=== PATIENT | female | born 1980 | race Caucasian/White ===

== ENCOUNTER 2016-03-31 22:59 | Emergency (ER) | payer SELFPAY ==
--- NOTE | 2016-03-31 23:46 | ERNOTE ---
Abdominal HPI - Narrative Date of Service: 03/31/16 - General Chief Complaint: Abdominal Pain Time Seen by Provider: 03/31/16 23:46 Source: patient, family Exam Limitations: no limitations - Immun/Allergies/Home Medications Immunizatons: IMMUNIZATION HX Immunizations Up to Date Yes History of Influenza Vaccine Yes Hx Pneumococcal Vaccination No Allergies/Adverse Reactions: Allergies No Known Drug Allergies Allergy (Verified 03/31/16 23:13) Home Medications: HOME MEDICATIONS Pantoprazole Sodium [Protonix] 20 mg PO DAILY #30 tab 04/01/16 [Last Taken Unknown] - History of Present Illness Date (Duration): 03/31/16 Time (Timing): 23:53 Timing: constant Quality: moderate Activities at Onset: none Modifying Factors - (Improves): Present: other - patient is a 35-year-old female with intermittent abdominal pain over the years. Pain associated with discomfort that goes to her back. Patient states most recent episode started approximately 5-7 days ago and has gotten worse. She does not relate this to meals or any other particular activities. Patient does not take NSAIDs nor excess alcohol. She is a 3 para 3004 female currently menstruating. Patient has no associated nausea vomiting or changes in her bowels or urine. Modifying Factors - (Worsens): Present: other Associated Symptoms: Present: back pain Prior Abdominal Problems: Present: similar symptoms Review of Systems - Review of Systems Constitutional: Present: no symptoms reported EYE: Present: no symptoms reported ENT: Present: no symptoms reported Respiratory: Present: no symptoms reported Cardiology: Present: no symptoms reported Gastrointestinal/Abdominal: Present: abdominal pain Genitourinary: Present: no symptoms reported Musculoskeletal: Present: back pain Skin: Present: no symptoms reported Neurological: Present: no symptoms reported Endocrine: Present: no symptoms reported Hematologic/Lymphatic: Present: no symptoms reported Psych: Present: no symptoms reported - was some basic CBC comprehensive lipase and urine - Patient's Past Medical History Patient History - Medical: No pertinent hx, GERD Patient History - Cardiac/Respiratory: Asthma, Hyperlipidemia Patient History - Cancer: No Hx of Cancer Patient History - Surgical Procedures: Tubal Ligation Patient History - Other: None LMP (females 10-50): now - Social History Living Situations: home Psych History: No pertinent hx Smoking Status: Current every day smoker Alcohol Use: none Drug Use: none - Immunizations Immunizations Up to Date: Yes Hx Pneumococcal Vaccination: No History of Influenza Vaccine: Yes Physical Exam - Physical Exam General Appearance: Present: wd/wn, alert, mild distress Eye Exam: Normal inspection: bilateral, PERRL: bilateral, EOMI: bilateral Ears, Nose, Throat: Present: normal ENT inspection - plan thank you, hearing grossly normal, normal pharynx Neck: Present: normal inspection, nontender Respiratory: Present: no respiratory distress, normal breath sounds, no accessory muscle use, chest nontender, lungs clear Cardiovascular/Chest: Present: regular rate, rhythm, no murmur - followed up with ultrasound, normal peripheral pulses Peripheral Pulses: N=norm/S=strong/W=weak/B=bound/A=absent: Carotid (R): Normal , Carotid (L): Normal, Dorsalis-pedis (R): Normal, Dorsalis-pedis (L): Normal Gastrointestinal/Abdominal: Present: normal bowel sounds, tenderness. Absent: guarding, rebound, McBurney sign, Obturator sign, Fofana sign, Psoas sign, mass , hernia, hepatomegaly Back Exam: Present: normal inspection, normal range of motion, no CVA tenderness , no vertebral tenderness Extremity Exam: Present: normal inspection, non-tender, no edema, normal range of motion Neurological Exam: Present: alert, oriented, normal mood/affect, no motor/ sensory deficits Skin Exam: Present: normal color, warm/dry - Lymphatic Exam: Present: no adenopathy ED Progress - Date and Time Seen: Date and Time: 03/31/16 23:57 Patient initial examination and history is been performed. We will get baseline labs at this point. 04/01/16 01:37 Patient with significant symptomatic relief with GI cocktail. Baseline labs show mild elevation sodium suggestive of slight dehydration otherwise no significant abnormality noted. Condition most likely GERD-peptic ulcer related but difficult to tell given that episodes are infrequent. As mentioned previously these are not triggered by any particular food Laboratory Results - last 24 hr 03/31/16 03/31/16 04/01/16 00:09 00:09 00:12 WBC 5.2 RBC 4.85 Hgb 13.1 Hct 38.6 MCV 79.6 MCH 27.0 MCHC 33.9 RDW 13.2 Plt Count 285 MPV 10.6 H Immature Gran % (Auto) 0.20 Immature Gran # (Auto) 0.01 Neutrophils % 55.9 Lymphocytes % 34.4 Monocytes % 6.4 Eosinophils % 2.5 Basophils % 0.6 Nucleated RBC % 0.0 Neutrophils # 2.9 Lymphocytes # 1.8 Monocytes # 0.3 Eosinophils # 0.1 Absolute Basophils 0.0 Sodium 143 H Plasma Sodium 143 H Potassium 4.1 Chloride 108 H Carbon Dioxide 27.5 Anion Gap 11.6 BUN 7 Creatinine 0.60 Est GFR (Non-Af Amer) 122 BUN/Creatinine Ratio 11.7 Random Glucose 105 Calcium 8.7 Calcium Adj for Albumin 8.7 Total Bilirubin 0.6 AST 16 ALT 34 Alkaline Phosphatase 59 Total Protein 7.3 Albumin 3.6 Lipase 111 Urine Color Urine Appearance Urine pH Ur Specific [place] Urine Protein Urine Glucose (UA) Urine Ketones Urine Blood Urine Nitrate Urine Bilirubin Urine Urobilinogen Ur Leukocyte Esterase Urine RBC Urine WBC Ur Epithelial Cells Ur Squamous Epith Cells Amorphous Sediment Urine Bacteria Urine Mucus Urine Culture Comments Urine HCG, Qual Negative 04/01/16 00:12 WBC RBC Hgb Hct MCV MCH MCHC RDW Plt Count MPV Immature Gran % (Auto) Immature Gran # (Auto) Neutrophils % Lymphocytes % Monocytes % Eosinophils % Basophils % Nucleated RBC % Neutrophils # Lymphocytes # Monocytes # Eosinophils # Absolute Basophils Sodium Plasma Sodium Potassium Chloride Carbon Dioxide Anion Gap BUN Creatinine Est GFR (Non-Af Amer) BUN/Creatinine Ratio Random Glucose Calcium Calcium Adj for Albumin Total Bilirubin AST ALT Alkaline Phosphatase Total Protein Albumin Lipase Urine Color Yellow Urine Appearance Clear Urine pH 6.0 Ur Specific [place] 1.020 Urine Protein Negative Urine Glucose (UA) Negative Urine Ketones Negative Urine Blood 50 H Urine Nitrate Negative Urine Bilirubin Negative Urine Urobilinogen Normal Ur Leukocyte Esterase Negative Urine RBC 5-10 H Urine WBC 0-5 Ur Epithelial Cells 5-10 H Ur Squamous Epith Cells None seen Amorphous Sediment Few - 1+ Urine Bacteria None seen Urine Mucus Many - 3+ H Urine Culture Comments No culture indicated Urine HCG, Qual . Patient with negative Fofana sign. 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 Patient will follow-up with primary doctor if symptoms persist. Have offered CAT scan but she would like to defer at this time. 04/01/16 01:38 - Results and Orders Patient's Lab Results:: I have reviewed the patient's lab results. - Vital Signs Patient's Vital Signs:: I have reviewed the patient's vital signs. Vital Signs: Vital Signs 02/12/17 23:06 Temperature 36.0 C L Pulse Rate 78 Respiratory 18 Rate Blood Pressure 140/91 O2 Sat by Pulse 100 Oximetry - Progress/Reassessment Chief Complaint: Abdominal Pain Departure - Departure Clinical Impression: GERD with esophagitis Disposition: Home self-care Condition: Good Instructions: Heartburn, [id number] Additional Instructions: If symptoms persist please purchase Protonix prescribed tonight. If this fails to resolve condition further recommend further evaluation by primary care provider to include upper GI scope and possible other studies as they feel appropriate. Prescriptions: Pantoprazole Sodium [Protonix] 20 mg PO DAILY #30 tab
[2016-04-01] MEDS ORDERED: MAG HYDROX/ALUMINUM HYD/SIMETH 30 ML UDC PO ONE
[2016-04-01] MEDS ORDERED: BELLADONNA ALKALOIDS/PHENOBARB 60 ML BTL PO ONE
[2016-04-01] MEDS ORDERED: LIDOCAINE HCL 20 ML UDC PO ONE
[2016-04-01 00:13] LABS: Hematocrit 38.6 % (37.0-47.0); Hemoglobin 13.1 gm/dL (12.5-16.0); Mean Cell Volume 79.6 fl (78-100); Mean Corpuscular Hgb Conc 33.9 g/dl (32-36); Mean Platelet Volume 10.6 fl (6.0-9.5); Neutrophil # 2.9 K/mm3 (1.3-6.0); Neutrophil % 55.9 % (42-75.0); Platelet Count 285 K/mm3 (150-450); Red Blood Count 4.85 M/mm3 (4.2-5.4); Red Cell Distribution Width 13.2 % (11.5-14.0); White Blood Count 5.2 K/mm3 (4.0-10.5)
[2016-04-01 00:25] LABS: Urine Bilirubin Negative (NEGATIVE); Urine Blood 50 /ul (NEGATIVE); Urine Ketone Negative (NEGATIVE); Urine Nitrite Negative (NEGATIVE); Urine Protein Negative (NEGATIVE); Urine Urobilinogen Normal (NORMAL)
[2016-04-01 00:27] LABS: Albumin * 3.6 gm/dl (3.4-5.0); Anion Gap 11.6 mmol/L (6.8-13.8); BUN/Creatinine Ratio 11.7 (9.0-21.6); Bilirubin, Total 0.6 mg/dL (0.0-1.1); Ca. Corrected For Albumin 8.7 mg/dL (8.4-10.2); Calcium * 8.7 mg/dL (7.9-10.9); Carbon Dioxide 27.5 mmol/L (24-32.6); Potassium 4.1 mmol/L (3.4-4.6); Total Protein 7.3 gm/dL (6.2-8.2)
[2016-04-01 00:34] LABS: Urine Appearance Clear; Urine Color Yellow
[2016-04-01 00:37] LABS: Urine Amorphous Sediment Few - 1+ (NONE-FEW); Urine Bacteria None Seen; Urine Mucus Many - 3+; Urine Squamous Epithelial Cell None Seen /hpf; Urine WBC 0-5 /hpf (0-5)
--- OUTSIDE RECORDS SUMMARY | 2016-04-01 00:37 | XMS REPORT | Continuity of Care Document ---
:1980 Author Organization [facility] ([facility]) Address [place] [address] Phone [phone] Care Team Providers Name Role Phone Unavailable Primary Care Provider Unavailable Source Comments This disclosure is being made pursuant to the Care Everywhere program, applicable federal and state laws, and may not contain all informaitonavailable regarding this patient.[facility] ([facility]) Active Allergies and Adverse Reactions Not on File Current Medications Not on file Active Problems Not on file Social History Tobacco Use Types Packs/Day Years Used Date Never Assessed Plan of Care Health Maintenance Due Date Last Done Comments Hepatitis B Vaccine (1 of 3 - Primary Series) 1982 Tdap Vaccine 1993 Lipid Disorder Screening 2000 MMR Vaccine 2000 Td Vaccine 2000 Varicella Vaccine (1 of 2 - Adult - No Evidence of 2000 Immunity) Cervical Cancer Screening 2012 Influenza Vaccine: Seasonal (#1) 09/18/2015 Results from Last 3 Months Not on file
[2016-04-01 01:18] VITALS: BP 103/58
== END 2016-04-01 01:45 | disposition home or self-care (01) ==
LOC: ER 22:59
DX: K21.0 Gastro-esophageal reflux disease with esophagitis (principal); F17.210 Nicotine dependence, cigarettes, uncomplicated